=== PATIENT | male | born 1955 | race Caucasian/White ===

== ENCOUNTER 2022-05-17 14:58 | Emergency (ER) | payer MEDICAID ==
[~2022-05-17] VITALS: Ht 165.1 cm; Wt 82.0 kg
[2022-05-17 15:06] VITALS: BP 111/72
[2022-05-17] MEDS ORDERED: ACETAMINOPHEN 325MG TABLET PO ONE (17:45)
[2022-05-17] MEDS ORDERED: TETANUS, DIPHTHERIA, PERTUSSIS VAC/PF 0.5ML (>10YR OLD) IM ONE (17:45)
[2022-05-17] MEDS ORDERED: BACITRACIN ZINC OINT UDPKT TOP ONE (17:45)
[2022-05-17] MEDS ORDERED: LIDOCAINE HCL/PF 1% 10 MG/ML 5ML VIAL INFIL ONE (17:45)
[2022-05-17] MEDS ORDERED: BO1 TP (17:57)
== END 2022-05-17 18:50 | disposition home or self-care (01) ==
LOC: ER 14:58
DX: S51.012A Laceration without foreign body of left elbow, initial encounter (principal); W18.39XA Other fall on same level, initial encounter; Y93.89 Activity, other specified; Y92.89 Other specified places as the place of occurrence of the external cause; Y99.8 Other external cause status; E11.9 Type 2 diabetes mellitus without complications; I10 Essential (primary) hypertension
CPT/HCPCS: 73080; 90471; 90715; 99283; J3490